=== PATIENT | female | born 1970 | race Two or more races ===

== ENCOUNTER 2021-06-19 11:05 | Emergency (ER) | payer MEDICAID ==
[~2021-06-19] VITALS: Ht 157.5 cm; Wt 59.0 kg
[2021-06-19 11:29] VITALS: BP 125/78
[2021-06-19] MEDS ORDERED: LIDOCAINE 1% HCL (LOCAL ANESTH.) INJ 20ML MDV IJ ONE (12:00)
[2021-06-19] MEDS ORDERED: cefTRIAXone SOD 1,000 MG VL IM ONE (12:30)
== END 2021-06-19 12:39 | disposition home or self-care (01) ==
LOC: EDBD → ER 11:05
DX: L02.212 Cutaneous abscess of back [any part, except buttock and flank] (principal)
CPT/HCPCS: 10060; 96372; 99283; J0696; J2001

== ENCOUNTER 2021-06-22 14:36 | Emergency (ER) | payer MEDICAID ==
[~2021-06-22] VITALS: Ht 160 cm; Wt 68.0 kg
[2021-06-22 14:36] VITALS: BP 139/80
[2021-06-22] MEDS ORDERED: ONDANSETRON ODT 4 MG TAB PO ONE (18:00)
[2021-06-22] MEDS ORDERED: ACETAMINOPHEN/CODEINE#3 (300/30mg) TAB PO ONE (18:00)
== END 2021-06-22 18:12 | disposition home or self-care (01) ==
LOC: EDBD 14:36 → ER 14:36
DX: L02.212 Cutaneous abscess of back [any part, except buttock and flank] (principal)
CPT/HCPCS: 99283; Q0162

== ENCOUNTER 2021-06-24 11:22 | Emergency (ER) | payer MEDICAID ==
[~2021-06-24] VITALS: Ht 160 cm; Wt 59.0 kg
[2021-06-24 12:02] VITALS: BP 106/70
== END 2021-06-24 12:50 | disposition home or self-care (01) ==
LOC: ER 11:22
DX: Z48.00 Encounter for change or removal of nonsurgical wound dressing (principal)

== ENCOUNTER 2023-07-20 21:09 | Emergency (ER) | payer MEDICAID ==
[~2023-07-20] VITALS: Ht 152.4 cm; Wt 58.6 kg
[2023-07-20 21:49] VITALS: BP 169/89; PULSE 77; RESP 19; O2SAT 96
[2023-07-20] MEDS ORDERED: AMOXICILLIN/CLAVUL 875 MG TAB PO ONE (22:15)
[2023-07-20] MEDS ORDERED: KETOROLAC TROMETH 60MG/2ML VIAL IM ONE (22:15)
[2023-07-20] MEDS ORDERED: HYDROcodone-ACET 10/325MG TAB PO ONE (22:15)
[2023-07-20] MEDS ORDERED: ACE3T PO (22:21)
[2023-07-20] MEDS ORDERED: IBUP-1454 PO (22:21)
[2023-07-20] MEDS ORDERED: AUG875T PO (22:21)
== END 2023-07-21 04:30 | disposition left against medical advice (07) ==
LOC: ER 21:09
DX: K04.7 Periapical abscess without sinus (principal)